=== PATIENT | male | born 1990 | race American Indian/Alaskan Native ===

== ENCOUNTER 2017-05-31 17:45 | Emergency (ER) | payer OTHER ==
[2017-05-31 18:06] VITALS: BP 131/65
[2017-05-31 18:57] LABS: Bilirubin,Urine NEG (Negative); Blood,Urine NEG (Negative); Ketones,Urine NEG (Negative); Leukocyte Esterase,Urine NEG (Negative); Mucus,Urine FEW /HPF; Nitrite,Urine NEG (Negative); Protein,Urine <15 mg/dL mg/dL (Negative); Urobilinogen,Urine < 2.0 mg/dL (<2.0)
--- NOTE | 2017-05-31 19:41 | Emergency Department Report ---
HPI - General Chief Complaint: Urogenital-Male Time Seen by Provider: 05/31/17 19:27 - HPI HPI: Patient is a 26-year-old male presents to ED complaining of pain with urination times one week. Patient states he may have that sensation intercourse with someone that a week and a half ago and is worried that he may have been exposed to something. Patient denies fevers/nausea/vomiting/abdominal pain/penile discharge, scrotum swelling, penile pain or scrotum pain. ED Past Medical Hx - Past Medical History Previous Medical History?: No - Surgical History Past Surgical History?: No - Social History Smoking Status: Current Every Day Smoker Substance Use Type: Alcohol - Medications Home Medications: Home Medications Medication Instructions Recorded Confirmed Last Taken Type Ibuprofen [Motrin] 400 mg PO Q8H PRN #20 tablet 05/31/17 Unknown Rx Phenazopyridine [Pyridium] 200 mg PO BID #8 tab 05/31/17 Unknown Rx ED Review of Systems ROS: Stated complaint: PAINFUL URINATING Other details as noted in HPI Constitutional: denies: chills, fever Eyes: denies: eye pain, eye discharge, vision change ENT: denies: ear pain, throat pain Respiratory: denies: cough, shortness of breath, wheezing Cardiovascular: denies: chest pain, palpitations Endocrine: no symptoms reported Gastrointestinal: denies: abdominal pain, nausea, diarrhea Genitourinary: dysuria. denies: urgency, frequency, hematuria, discharge, testicular pain, testicular mass Musculoskeletal: denies: back pain, joint swelling, arthralgia Skin: denies: rash, lesions Neurological: denies: headache, weakness, paresthesias Psychiatric: denies: anxiety, depression Hematological/Lymphatic: denies: easy bleeding, easy bruising Physical Exam - Physical Exam Vital Signs: Vital Signs 05/31/17 18:04 Temperature 99.4 F Pulse Rate 77 Respiratory 18 Rate Blood Pressure 131/65 O2 Sat by Pulse 100 Oximetry Physical Exam: GENERAL: Alert and oriented x3, no apparent distress, Normal Gait, atraumatic. LUNGS: Symetrical with respiration, No wheezing, no rales or crackles, CTAB. HEART: S1, S2 present, regular rate and rhythm without murmur, no rubs, no gallops. Non tender to palpation ABDOMEN: No organomegaly was noted,Positive bowel sounds, soft, and non- distended. . Nontender to palpation on all Quadrants, NO CVA tenderness. BACK: Full range of motion, no spinal tenderness, nontender to palpation. UROGENITAL: No scrotal mass, Scrotum non tender to palpation bilaterally, no hernia, no scars or penile discharge. SKIN: Warm and dry, No lesions, No ulceration or induration present. ED Course Vital Signs 05/31/17 18:04 Temperature 99.4 F Pulse Rate 77 Respiratory 18 Rate Blood Pressure 131/65 O2 Sat by Pulse 100 Oximetry ED Medical Decision Making - Medical Decision Making 26-year-old male presents with dysuria ED course: Urinalysis ordered. Urinalysis shows negative findings I discussed with patient urinalysis finding. I discussed the patient to follow-up with department for further STD testing. I discussed the patient symptoms become more so if she develops new symptoms to return to the ED. Patient's alert and oriented times 3. Vital signs are normal patient is in no acute discharge. Patient will be discharged home with instructions. Critical care attestation.: If time is entered above; I have spent that time in minutes in the direct care of this critically ill patient, excluding procedure time. ED Disposition Clinical Impression: Dysuria Disposition: DC-01 TO HOME OR SELFCARE Is pt being admited?: No Does the pt Need Aspirin: No Condition: Stable Instructions: Dysuria (ED) Additional Instructions: Follow-up with the health department for further STD testing If you develop any new symptoms please return to ED Prescriptions: Ibuprofen [Motrin] 400 mg PO Q8H PRN #20 tablet PRN Reason: Pain Phenazopyridine [Pyridium] 200 mg PO BID #8 tab Referrals: PRIMARY CARE [Primary Care Provider] - 3-5 Days [facility] [Outside] - 3-5 Days [facility] [Outside] - 3-5 Days [facility] [Outside] - 3-5 Days Forms: Work/School Release Form(ED) Time of Disposition: 20:01
== END 2017-05-31 20:41 | disposition home or self-care (01) ==
LOC: ED 17:45
DX: R30.0 Dysuria (principal); F17.200 Nicotine dependence, unspecified, uncomplicated
CPT/HCPCS: 81001; 87591; 99283